=== PATIENT | male | born 2000 | race Caucasian/White ===

== ENCOUNTER 2024-07-12 02:22 | Emergency (ER) | payer SELFPAY ==
[~2024-07-12] VITALS: Ht 185.4 cm; Wt 72.6 kg
[2024-07-12] MEDS: IV NS 0.9% 1,000 ML IV ONE ×2 (04:11→04:19)
[2024-07-12] MEDS ORDERED: diphenhydrAMINE HCL 50 MG/ML VIAL ONE (04:13)
[2024-07-12] MEDS ORDERED: LORAZEPAM INJ 2 MG/ML VIAL ONE (04:14)
[2024-07-12] MEDS: LORAZEPAM INJ 2 MG/ML VIAL IV ONE (04:19)
[2024-07-12] MEDS: diphenhydrAMINE HCL 50 MG/ML VIAL IV ONE (04:19)
[2024-07-12 04:20] LABS: BASOPHILS # (AUTO) 0.1 K/uL (0.0-0.2); BASOPHILS % (AUTO) 0.5 % (0.0-2.0); EOSINOPHILS % (AUTO) 0.2 % (0.0-6.0); HEMATOCRIT 45 % (39-51); HEMOGLOBIN 14.6 g/dL (13.5-17.5); LYMPHOCYTES # (AUTO) 2.7 K/uL (0.8-4.8); LYMPHOCYTES % (AUTO) 23.7 % (20.0-44.0); MEAN CORPUSCULAR HEMOGLOBIN 30 PG (26.0-33.0); MEAN CORPUSCULAR HGB CONC 33 g/dl (31.0-36.0); MEAN CORPUSCULAR VOLUME 91 fL (80-96); MONOCYTES % (AUTO) 9.3 % (2.0-12.0); NEUTROPHILS # (AUTO) 7.5 K/uL (1.8-8.9); NEUTROPHILS % (AUTO) 66.3 % (43.0-81.0); PLATELET COUNT (AUTO) 324 K/uL (150-450); RED BLOOD CELL COUNT(AUTO) 4.92 MIL/uL (4.5-6.0); RED CELL DISTRIBUTION WIDTH 13.8 % (11.5-15.0); WHITE BLOOD COUNT (AUTO) 11.3 K/uL (4.3-11.0)
[2024-07-12 04:26] LABS: APPEARANCE,URINE CLEAR (CLEAR); BILIRUBIN,URINE NEGATIVE (NEGATIVE); BLOOD, URINE NEGATIVE Ery/uL (NEGATIVE); COLOR,URINE YELLOW (YELLOW); KETONES,URINE 1+ mg/dL (NEGATIVE); LEUKOCYTE ESTERASE ,URINE NEGATIVE (NEGATIVE); NITRITE, URINE NEGATIVE (NEGATIVE); PROTEIN,URINE TRACE mg/dl (NEGATIVE); UGLUCOSE NEGATIVE (NEGATIVE); UROBILINOGEN,URINE 0.2 EU/dL (0.2)
[2024-07-12 04:42] LABS: CALCIUM, SERUM 9.4 mg/dL (8.5-10.1); CARBON DIOXIDE 24 mmol/L (21-32); CHLORIDE 102 mmol/L (98-107); CREATININE 1.4 mg/dL (0.6-1.3); GLUCOSE 93 mg/dL (74-106); POTASSIUM 3.5 mmol/L (3.5-5.1); SODIUM SERUM 139 mmol/L (136-145); UREA NITROGEN, BLOOD 24 mg/dL (7-18)
[2024-07-12 04:49] LABS: ALANINE AMINOTRANSFERASE 26 U/L (12-78); ALBUMIN 4.7 g/dL (3.4-5.0); ALCOHOL, BLOOD < 3 mg/dL (0-10); ALKALINE PHOSPHATASE 85 U/L (46-116); AMPHETAMINE, URINE POSITIVE (NEGATIVE); ASPARTATE AMINOTRANSFERASE 31 U/L (15-37); BARBITURATE, URINE NEGATIVE (NEGATIVE); BENZODIAZEPINE, URINE NEGATIVE (NEGATIVE); BILIRUBIN,TOTAL 0.7 mg/dL (0.2-1.0); CANNABINOID, URINE POSITIVE (NEGATIVE); COCCAINE, URINE NEGATIVE (NEGATIVE); OPIATE, URINE NEGATIVE (NEGATIVE); PHENCYCLIDINE SCREEN,URINE NEGATIVE (NEGATIVE); TOTAL PROTEIN, SERUM 8.3 g/dL (6.4-8.2)
[2024-07-12 05:15] LABS: MUCUS,URINE Many /LPF (None Seen)
[2024-07-12 05:16] LABS: ADD URINE CULTURE YES; BACTERIA,URINE Moderate /HPF (None Seen); RBC,URINE 0-2 /HPF (0-2); SQUAMOUS EPITHELIAL CELL,UR Few /HPF (None Seen); WBC,URINE 0-2 /HPF (0-3)
[2024-07-12 05:34] VITALS: BP 110/80; TEMP 98; O2SAT 96
[2024-07-12] MEDS ORDERED: LEVO500T90 PO (07:02)
== END 2024-07-12 05:34 | disposition home or self-care (01) ==
LOC: ER 02:36
DX: F15.10 Other stimulant abuse, uncomplicated (principal); R00.2 Palpitations; Z60.2 Problems related to living alone; Z79.899 Other long term (current) drug therapy
CPT/HCPCS: 99284; 96374; 96361; 96375; 93005; 85025; 81001; 36415; 80053; 80320; 80307; 98960; J2060; J1200; J7030 ×2; G0480